=== PATIENT | male | born 1965 | race Caucasian/White ===

== ENCOUNTER 2017-01-26 09:57 | Emergency (ER) | payer OTHER ==
[2017-01-26 10:20] VITALS: BP 120/93; PULSE 113; TEMP 99.1; BMI 37.3
[2017-01-26] MEDS ORDERED: IBUPROFEN 600 MG TABLET (FP) PO ONE ×2 (10:39→10:43)
[2017-01-26] MEDS ORDERED: DIPHTH,PERTUSS(ACELL),TET 0.5 ML DISP.SYRIN IM ONE (10:41)
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
[2017-01-26] MEDS ORDERED: LIDOCAINE 1%/EPI 1:100000 (20 ML MULTI DOSE VIAL) ONE (12:39)
== END 2017-01-26 13:37 | disposition home or self-care (01) ==
LOC: JER 09:57
PROC: 0HQFXZZ Repair Right Hand Skin, External Approach (ICD-10-PCS; principal; 2017-01-26)
PROC: 3E0234Z Introduction of Serum, Toxoid and Vaccine into Muscle, Percutaneous Approach (ICD-10-PCS; 2017-01-26)
DX: S61.411A Laceration without foreign body of right hand, initial encounter (principal); M25.511 Pain in right shoulder; S80.212A Abrasion, left knee, initial encounter; V47.5XXA Car driver injured in collision with fixed or stationary object in traffic accident, initial encounter; W22.11XA Striking against or struck by driver side automobile airbag, initial encounter; Y92.412 Parkway as the place of occurrence of the external cause; Y93.89 Activity, other specified; Y99.8 Other external cause status; J44.9 Chronic obstructive pulmonary disease, unspecified; F41.8 Other specified anxiety disorders; Z86.718 Personal history of other venous thrombosis and embolism; Z79.01 Long term (current) use of anticoagulants
CPT/HCPCS: 71020-TC; 73130-TC-RT; 90715; 93005; 93010; 99282-25

== ENCOUNTER 2021-09-28 15:07 | Emergency (ER) | payer OTHER ==
[2021-09-28 15:23] VITALS: BP 141/82; PULSE 84; TEMP 98.1; BMI 37.3
[2021-09-28] MEDS ORDERED: KETOROLAC TROMETHAMINE 30 MG/1 ML VIAL IM ONE (16:19)
[2021-09-28] MEDS ORDERED: KETOROLAC TROMETHAMINE 30 MG/1 ML VIAL ONE (16:25)
[2021-09-28] MEDS ORDERED: LIDOCAINE 5% TOPICAL PATCH ONE (19:08)
== END 2021-09-28 19:08 | disposition home or self-care (01) ==
LOC: JER 15:07
PROC: 3E0233Z Introduction of Anti-inflammatory into Muscle, Percutaneous Approach (ICD-10-PCS; principal; 2021-09-28)
DX: M79.622 Pain in left upper arm (principal)
CPT/HCPCS: 93005; 93010; 93971; 99284-25